=== PATIENT | female | born 1975 | race Caucasian/White ===

== ENCOUNTER 2017-07-08 09:50 | Emergency (ER) | payer OTHER ==
[2017-07-08 09:56] VITALS: TEMP 99.2; BMI 59.5
--- NOTE | 2017-07-08 10:06 | ED.PDOC ---
General ED Provider: Dr. DAVID ARDON JR Chief Complaint: Extremity Swelling/Pain Stated Complaint: took shower this am and while drying legs noted tenderness and sm bump to left leg--went to dr olivas's office--told to go to er to rule out blood clot--[End]99.2 109 20 95% 162/111 03/05 cough with green and red sputum Time Seen by Physician: 10:06 Mode of Arrival: Walk-In Information Source: Patient Exam Limitations: No limitations Primary Care Provider: TERA OLIVAS Nursing and Triage Documentation Reviewed and Agree: No Review of Systems - Review Of Systems Constitutional: Reports: Diaphoresis (sweats), Fever Ears, Nose, Mouth, Throat: Reports: No symptoms Respiratory: Reports: Cough Cardiac: Reports: No symptoms GI: Reports: Abdominal pain (post lap band), Nausea, Vomiting : Reports: No symptoms Musculoskeletal: Reports: No symptoms Skin: Reports: No symptoms Neurological: Reports: No symptoms Endocrine: Reports: No symptoms Hematologic/Lymphatic: Reports: No symptoms All Other Systems: Other Past Medical History - Past Medical History Endocrine: Reports: Hypothyroid Cardiovascular: Reports: Hypertension Respiratory: Reports: None Hematological: Reports: None Gastrointestinal: Reports: None Genitourinary: Reports: Kidney stones Neuro/Psych: Reports: Migraine Musculoskeletal: Reports: None Cancer: Reports: None Last Menstrual Period: now Other Pertinent Past Medical History: hypoglycemic, tachycardia, thyroid nodules , fibromyalgia - Surgical History General Surgical History: Reports: Tonsillectomy, Orthopedic (foot surgeries x 7 ;tennis elbow surgery --carpal tunnel-left hand), Lap Band (lap band 2008 ), Unknown. Denies: Hysterectomy (ablation 2005 ) - Family History Family History: Reports: Unknown - Social History Smoking Status: Never smoker Hx Substance Use: No Alcohol Screening: None Physical Exam - Physical Exam Appearance: Well-appearing, Obese Pain Distress: Mild Neck: Supple Respiratory: Airway patent Cardiovascular: RRR, Pulses normal, No rub, No murmur GI/: Soft, Nontender, No masses, Bowel sounds normal, No Organomegaly Musculoskeletal: Normal strength, ROM intact, No edema, No calf tenderness Skin: Warm, Dry, Normal color (tender left lateralknee crease with palpable vein tender about 4 cm long) Interpretation - Radiology Interpretation Radiology Interpretation By: Radiologist Radiology Results: Negative Exam Interpreted: CXR Radiology Interpretation By: Radiologist Radiology Results: Negative Exam Interpreted: Other (LE doppler) Re-Evaluation - Re-Evaluation Time of Re-Evaluation: 11:40 (note blood pressure- recommend take med as soon as possible and recheck blood pressure per PMD) Status: Improved Critical Care Note - Critical Care Note Total Time (mins): 20 Course - Course Hematology/Chemistry: 07/08/17 10:15 07/08/17 10:15 Orders, Labs, Meds: Lab Review 07/08/17 07/08/17 07/08/17 10:15 10:15 10:15 WBC 7.14 RBC 4.67 Hgb 13.3 Hct 39.8 MCV 85.2 MCH 28.5 MCHC 33.4 RDW Coeff of Arben 14.6 Plt Count 230 Immature Gran % (Auto) 0.4 Neut % (Auto) 58.5 Lymph % (Auto) 30.3 [place] % (Auto) 8.0 Eos % (Auto) 1.7 Baso % (Auto) 1.1 Immature Gran # (Auto) 0.0 Neut # 4.2 Lymph # 2.2 [place] # 0.6 Eos # 0.1 Baso # 0.1 PT INR APTT D-Dimer (Manual) 329.38 Sodium 137 Potassium 3.6 Chloride 100 Carbon Dioxide 28 Anion Gap 12.6 BUN 16 Creatinine 0.95 Estimated GFR (MDRD) 65.00 BUN/Creatinine Ratio 16.84 Glucose 169 H Calcium 9.5 Total Bilirubin 0.47 AST 17 ALT 24 Alkaline Phosphatase 124 H Total Protein 7.1 Albumin 3.6 Globulin 3.5 Albumin/Globulin Ratio 1.03 Procalcitonin 07/08/17 07/08/17 10:15 10:15 WBC RBC Hgb Hct MCV MCH MCHC RDW Coeff of Arben Plt Count Immature Gran % (Auto) Neut % (Auto) Lymph % (Auto) [place] % (Auto) Eos % (Auto) Baso % (Auto) Immature Gran # (Auto) Neut # Lymph # [place] # Eos # Baso # PT 9.9 INR 0.97 APTT 25.4 D-Dimer (Manual) Sodium Potassium Chloride Carbon Dioxide Anion Gap BUN Creatinine Estimated GFR (MDRD) BUN/Creatinine Ratio Glucose Calcium Total Bilirubin AST ALT Alkaline Phosphatase Total Protein Albumin Globulin Albumin/Globulin Ratio Procalcitonin < 0.05 Orders Category Date Time Status BLOOD CULTURE Stat LAB 07/08/17 10:15 Received CBC W/ AUTO DIFF Stat LAB 07/08/17 10:15 Completed COMPREHENSIVE METABOLIC PANEL Stat LAB 07/08/17 10:15 Completed D-DIMER Stat LAB 07/08/17 10:15 Completed PARTIAL THROMBOPLASTIN TIME Stat LAB 07/08/17 10:15 Completed PROCALCITONIN Stat LAB 07/08/17 10:15 Completed PT WITH INR Stat LAB 07/08/17 10:15 Completed CHEST, 2 VIEWS PA & LAT Stat RADS 07/08/17 10:15 Completed ULTRASOUND VENOUS SCAN LT. LEG [U/S VENOUS SCAN LT. LEG RADS 07/08/17 10:04 Completed ] Stat Vital Signs: Temp Pulse Resp BP Pulse Ox 07/08/17 11:36 151/101 H 07/08/17 09:51 99.2 F 109 H 20 162/111 H 95 Departure - Departure Time of Disposition: 11:25 Disposition: HOME SELF-CARE Discharge Problem: Vasculitis limited to the skin, unspecified Instructions: Peripheral Vascular Disease (ED) Condition: Good Pt referred to PMD for follow-up: Yes Additional Instructions: discuss morning red sputum with your physician short term twice daily Advil or Aleve for focal tenderness and swelling, may use ice for tenderness and swelling no evidence of blood clots on ultrasound nor D-Dimer recommend daily exercise for fibromyalgia return if new symptoms or shrtness of breath chest xray also normal Allergies/Adverse Reactions: Allergies sulfamethoxazole [From Bactrim] Adverse Reaction (Verified 07/08/17 09:58) trimethoprim [From Bactrim] Adverse Reaction (Verified 07/08/17 09:58) Home Medications: Ambulatory Orders Acetaminophen/Diphenhydramine [Tylenol Pm Ex-Strength Caplet] 1.5 tab PO QPM Atorvastatin Calcium [Lipitor] 20 mg PO QPM 03/13/15 Linaclotide [Linzess] 290 mcg PO QAM 03/13/15 Losartan/Hydrochlorothiazide [Hyzaar 100-25 Tablet] 1 tab PO QAM 03/13/15 Naproxen Sodium [Aleve] 440 mg PO DAILY PRN 03/13/15 Amitriptyline HCl 50 mg PO BEDTIME 06/18/16 Duloxetine HCl [Cymbalta] 30 mg PO DAILY 06/18/16 Metoprolol Succinate [Toprol Xl] 25 mg PO DAILY 06/18/16 Omeprazole Magnesium [Prilosec Otc] 20 mg PO BID 06/18/16 Gabapentin [Neurontin] 100 mg PO QID 07/08/17
[2017-07-08 10:29] LABS: BASOPHILS # (AUTO) 0.1 K/uL (0-0.2); BASOPHILS % (AUTO) 1.1 % (0.0-3.0); EOSINOPHILS # (AUTO) 0.1 K/ul (0.0-0.7); EOSINOPHILS % (AUTO) 1.7 % (0.0-7.0); HEMATOCRIT 39.8 % (37.0-47.0); HEMOGLOBIN 13.3 g/dl (12.0-16.0); IMMATURE GRANULOCYTE % (AUTO) 0.4 % (0.0-5.0); LYMPHOCYTES # (AUTO) 2.2 K/uL (0.60-3.4); LYMPHOCYTES % (AUTO) 30.3 (10.0-50.0); MEAN CORPUSCULAR HEMOGLOBIN 28.5 pg (27.0-31.0); MEAN CORPUSCULAR HGB CONC 33.4 (31.8-35.4); MEAN CORPUSCULAR VOLUME 85.2 fl (81.0-99.0); MONOCYTES # (AUTO) 0.6 K/uL (0.4-2.0); NEUTROPHILS # (AUTO) 4.2 K/ul (2.0-6.9); NEUTROPHILS % (AUTO) 58.5; PLATELET COUNT 230 10^3/uL (140-440); RED BLOOD COUNT 4.67 10^6/ul (4.20-5.40); WHITE BLOOD COUNT 7.14 K/ul (4.6-10.2)
[2017-07-08 10:48] LABS: ALBUMIN 3.6 g/dL (3.4-5.0); ALBUMIN/GLOBULIN RATIO 1.03; ANION GAP 12.6; BILIRUBIN,TOTAL 0.47 mg/dL (0.00-1.20); BUN/CREATININE RATIO 16.84; CALCIUM 9.5 mg/dL (8.2-10.2); CREATININE 0.95 mg/dL (0.60-1.30); PARTIAL THROMBOPLASTIN TIME 25.4 SEC (23.9-40.0); POTASSIUM 3.6 mmol/L (3.5-5.10); PROTHROMBIN TIME 9.9 SEC (9.3-11.0); TOTAL PROTEIN 7.1 g/dL (6.4-8.2)
--- NOTE | 2017-07-08 10:49 | US ---
EXAM: ULTRASOUND LOWER EXTREMITY VENOUS DOPPLER EXAM HISTORY: Tender nodule of the leg, concern for DVT. FINDINGS: Left lower extremity venous Doppler exam. Real time david-scale, Doppler spectral analysis and color-flow Doppler imaging performed. The veins targeted for evaluation include the common femor al, greater saphenous, profundus, femoral, popliteal, peroneal, anterior tibial and posterior tibial. The evaluated veins demonstrated normal spontaneous flow and compression without evidence of throm bosis. IMPRESSION: No venous thrombosis identified within the areas evaluated.
--- NOTE | 2017-07-08 10:55 | DI ---
EXAM: CHEST FRONTAL AND LATERAL VIEWS HISTORY: Fever, productive cough, hemoptysis . COMPARISON: 05/07/2012 FINDINGS: Heart size and mediastinal contour remain within normal limits. No acute infiltrates. Normal vascularity with no pleural fluid or pneumothorax. The bony thorax has no acute finding. IMPRESSION: No obvious consolidated pneumonia or acute process seen radiographically.
[2017-07-08 11:37] VITALS: BP 151/101
== END 2017-07-08 11:40 | disposition home or self-care (01) ==
LOC: ED 09:50
DX: L95.9 Vasculitis limited to the skin, unspecified (principal); I10 Essential (primary) hypertension; M79.605 Pain in left leg; E03.9 Hypothyroidism, unspecified; R10.9 Unspecified abdominal pain; R11.2 Nausea with vomiting, unspecified; Z79.899 Other long term (current) drug therapy
CPT/HCPCS: 36415; 80053; 84145; 85025; 85379; 85610; 85730; 87040; 99283

== ENCOUNTER 2017-08-08 09:12 | Outpatient (CLI) | payer OTHER ==
[2017-08-08 10:33] LABS: ALBUMIN 3.6 g/dL (3.4-5.0); ALBUMIN/GLOBULIN RATIO 0.97; ANION GAP 13.8; BILIRUBIN,TOTAL 0.54 mg/dL (0.00-1.20); BUN/CREATININE RATIO 14.89; CALCIUM 9.6 mg/dL (8.2-10.2); CREATININE 0.94 mg/dL (0.60-1.30); POTASSIUM 3.8 mmol/L (3.5-5.10); TOTAL PROTEIN 7.3 g/dL (6.4-8.2)
[2017-08-09 06:20] LABS: FOLLICLE STIMULATING HORMONE 7.6 mIU/mL (.); LUTEINIZING HORMONE 10.7 mIU/mL (.); PROGESTERONE < 0.1 ng/mL (.); PROLACTIN 13.5 ng/mL (4.8-23.3); TESTOSTERONE 9 ng/dL (8-48)
[2017-08-11 14:21] LABS: ACTH 22.7 pg/mL (7.2-63.3)
== END 2017-08-08 09:13 | disposition home or self-care (01) ==
LOC: LAB 09:12
PROVIDERS: ATTEND Internal Medicine Endocrinology, Diabetes & Metabolism
DX: E23.6 Other disorders of pituitary gland (principal); E66.9 Obesity, unspecified; E04.9 Nontoxic goiter, unspecified; E88.81 Metabolic syndrome and other insulin resistance
CPT/HCPCS: 36415; 80053; 82024; 82533; 83001; 83002; 83036; 84144; 84146; 84403; 84439; 84443

== ENCOUNTER 2018-03-11 12:15 | Outpatient (CLI) | payer OTHER, BC ==
--- NOTE | 2018-03-11 14:13 | US ---
EXAM: Thyroid ultrasound HISTORY: Thyroid nodule. COMPARISON: Thyroid nodule 06/20/2016 and 04/27/2015 TECHNIQUE: Sonographic evaluation of the thyroid was performed with limited doppler. FINDINGS: The right thyroid measures 4.8 x 1.9 x 1.4 cm. There is mild heterogeneous echogenicity and normal c olor Doppler flow. There are to complex nodules the largest in the inferior pole measures 1.5 x 1.3 x 1.3 cm with no significant internal color Doppler flow. The midpole complex lesion measures 1.0 x 0.9 x 1.0 cm with no definitive internal flow. The isthmus measures 0.4 cm in thickness. The left lobe of the thyroid measures 5.0 x 1.6 x 1.3 cm. This demonstrates mild heterogeneous echog enicity and normal color Doppler flow. There are three hypoechoic lesions in the left thyroid. The largest measuring 0.5 cm in diameter in the mid pole. These demonstrate no significant internal colo r Doppler flow. IMPRESSION: Heterogeneous thyroid with multiple nodules. The largest on the right measures 1.3 x 1.3 x 1.5 cm. This is unchanged when compared to exam 2016 and relatively unchanged when compared to 2015. Finding s are most consistent with a multinodular goiter.
== END 2018-03-11 12:16 | disposition home or self-care (01) ==
LOC: RAD 12:15
PROVIDERS: ATTEND Otolaryngology
DX: E04.1 Nontoxic single thyroid nodule (principal)

== ENCOUNTER 2018-05-20 10:36 | Outpatient (CLI) ==
--- NOTE | 2018-05-20 15:38 | US ---
EXAM: Limited right upper quadrant ultrasound. HISTORY: Abdominal pain. COMPARISON: CT abdomen pelvis from 06/26/2016 TECHNIQUE: Mederos scale, color and Doppler ultrasound evaluation of the right upper quadrant. FINDINGS: LIVER: There is increased echotexture without solid mass lesions or intrahepatic ductal dilatation. P ortal venous flow is antegrade. Liver size is normal. GALLBLADDER: Normally distended. No gallstones,sludge or pericholecystic fluid. Gallbladder wall thic kness is 0.3 cm. COMMON BILE DUCT: 0.4 cm. No filling defects. PANCREAS: Not visualized. RIGHT KIDNEY: The visualized portion of the right kidney is within normal limits. There is no ascites or visualized adenopathy. IMPRESSION: 1. Findings suggestive of fatty infiltration of the liver. 2. Normal gallbladder.
== END 2018-05-20 10:37 | disposition home or self-care (01) ==
LOC: RAD 10:36
PROVIDERS: ATTEND Family Medicine
DX: K76.0 Fatty (change of) liver, not elsewhere classified (principal)